=== PATIENT | female | born 1950 | race Two or more races ===

== ENCOUNTER 2023-03-21 13:36 | Emergency (ER) | payer MEDICARE, OTHER ==
[~2023-03-21] VITALS: Ht 149.9 cm; Wt 74.8 kg
[2023-03-21] MEDS ORDERED: HYDROCODONE/APAP 5/325MG TABLET PO ONE (14:30)
[2023-03-21] MEDS ORDERED: HYDROCODONE/APAP 5/325MG TABLET ONE (14:55)
[2023-03-21 14:56] LABS: BASOPHILS # (AUTO) 0.1 K/uL (0.0-0.2); BASOPHILS % (AUTO) 0.8 % (0.0-2.0); EOSINOPHILS # (AUTO) 0.3 K/uL (0.0-0.7); EOSINOPHILS % (AUTO) 3.5 % (0.0-6.0); HEMATOCRIT 34 % (33-45); LYMPHOCYTES # (AUTO) 0.9 K/uL (0.8-4.8); LYMPHOCYTES % (AUTO) 10.6 % (20.0-44.0); MEAN CORPUSCULAR HEMOGLOBIN 26 PG (26.0-33.0); MEAN CORPUSCULAR HGB CONC 33 g/dl (31.0-36.0); MEAN CORPUSCULAR VOLUME 79 fL (82-100); MONOCYTES # (AUTO) 0.4 K/uL (0.1-1.30); MONOCYTES % (AUTO) 4.7 % (2.0-12.0); NEUTROPHILS # (AUTO) 7.1 K/uL (1.8-8.9); NEUTROPHILS % (AUTO) 80.4 % (43.0-81.0); PLATELET COUNT (AUTO) 360 K/uL (150-450); RED BLOOD CELL COUNT(AUTO) 4.32 MIL/uL (4.0-5.2); WHITE BLOOD COUNT (AUTO) 8.9 K/uL (4.3-11.0)
[2023-03-21 15:06] LABS: CARBON DIOXIDE 24 mmol/L (21-32); CHLORIDE 103 mmol/L (98-107); CREATININE 0.7 mg/dL (0.6-1.3); GLUCOSE 193 mg/dL (74-106); POTASSIUM 3.7 mmol/L (3.5-5.1); SODIUM SERUM 136 mmol/L (136-145); UREA NITROGEN, BLOOD 19 mg/dL (7-18)
[2023-03-21 15:19] LABS: NT-PRO BNP 128 pg/mL (0-125)
[2023-03-21] MEDS ORDERED: HYDR-4303 PO (16:17)
[2023-03-21 17:35] VITALS: BP 121/69; TEMP 97.9; O2SAT 98
== END 2023-03-21 17:35 | disposition home or self-care (01) ==
LOC: ER 14:01
DX: S20.212A Contusion of left front wall of thorax, initial encounter (principal); R91.1 Solitary pulmonary nodule; I10 Essential (primary) hypertension; Z85.3 Personal history of malignant neoplasm of breast; W50.0XXA Accidental hit or strike by another person, initial encounter; Y93.89 Activity, other specified; Y92.89 Other specified places as the place of occurrence of the external cause; Y99.8 Other external cause status
CPT/HCPCS: 36415; 71045-TC; 71100-TC; 80048-TC; 83880; 84484-TC; 85025-TC